=== PATIENT | female | born 1960 | race Caucasian/White ===

== ENCOUNTER 2018-09-17 07:59 | Inpatient (IN) | payer BC ==
[2018-09-17 09:13] LABS: ADD MAN DIFF? NO
[2018-09-17 09:15] LABS: ABNORMAL IP MESSAGE 1; EOSINOPHILS # 0.2 10^3/ul (0.0-0.5); EOSINOPHILS % 4.7 % (0.0-7.0); HEMATOCRIT 30.1 % (37.0-47.0); HEMOGLOBIN 8.4 g/dl (12.0-16.0); LYMPHOCYTES # 0.8 10^3/ul (0.8-2.9); MEAN CORPUSCULAR HEMOGLOBIN 26.5 pg (29.0-33.0); MEAN CORPUSCULAR HGB CONC 27.9 g/dl (32.0-37.0); MEAN PLATELET VOLUME 9.9 fl (7.4-10.4); MONOCYTE # 0.2 10^3/ul (0.3-0.9); MONOCYTES % 4.7 % (0.0-11.0); NEUTROPHIL # 2.8 10^3/ul (1.6-7.5); NEUTROPHILS % 68.9 % (39.0-77.0); PLATELET COUNT 199 10^3/UL (140-415); RED BLOOD COUNT 3.17 10^6/ul (4.20-5.40); RED CELL DISTRIBUTION WIDTH 20.3 % (11.5-14.5)
[2018-09-17 09:15] LABS: WHITE BLOOD COUNT 4.1 10^3/ul (4.8-10.8)
[2018-09-17] MEDS: ONDANSETRON 4 MG INJ IV (09:15)
[2018-09-17] MEDS: HYDROmorphONE 1 MG/ML SYG IV (09:16)
[2018-09-17] MEDS: SOD CHLORIDE 0.9% 1,000 ML IV (09:16)
[2018-09-17] MEDS: ERTAPENEM SODIUM 1 GM in SOD CHLORIDE 0.9% 100 ML IVPB (09:20)
[2018-09-17 09:30] LABS: POSITIVE DIFF @See below
[2018-09-17 09:39] LABS: ALANINE AMINOTRANSFERASE 10 IU/L (13-69); ALBUMIN 3.5 g/dl (3.3-4.9); ALBUMIN/GLOBULIN RATIO 0.59; ALKALINE PHOSPHATASE 67 IU/L (42-121); ANION GAP 10 (5-13); ASPARTATE AMINO TRANSFERASE 21 IU/L (15-46); BILIRUBIN,INDIRECT 0.2 mg/dl (0-1.1); BILIRUBIN,TOTAL 0.2 mg/dl (0.2-1.3); BLOOD UREA NITROGEN 9 mg/dl (7-20); CALCIUM 8.6 mg/dl (8.4-10.2); CARBON DIOXIDE 29 mmol/L (21-31); CHLORIDE 107 mmol/L (97-110); Estimated GFR 31 mL/min (>60); GLUCOSE 86 mg/dl (70-220); POTASSIUM 4.2 mmol/L (3.5-5.1); SODIUM 146 mmol/L (135-144); TOTAL PROTEIN 9.4 g/dl (6.1-8.1)
[2018-09-17] MEDS ORDERED: ONDANSETRON 4 MG INJ IV ×2 (11:30→12:30)
[2018-09-17] MEDS ORDERED: ACETAMINOPHEN 325 MG TAB PO ×2 (11:30→12:30)
[2018-09-17] MEDS ORDERED: NON-FORMULARY/PATIENT OWN MED (Losartan-Hydrochlorothiazide (Losartan-HCTZ) 1 TAB) PO (12:30)
[2018-09-17] MEDS ORDERED: DOCUSATE SODIUM 100 MG CAP PO (12:30)
[2018-09-17] MEDS ORDERED: DIPHENHYDRAMINE 25 MG CAP PO (12:30)
[2018-09-17] MEDS ORDERED: NACL 0.9% 3 ML SYG IV (12:30)
[2018-09-17] MEDS ORDERED: VANCOMYCIN IV PER PHARMACY XX (12:30)
[2018-09-17 13:05] LABS: IRON 89 ug/dl (35-150)
[2018-09-17 13:14] LABS: % IRON SATURATION 30 % SAT (22-52); TOTAL IRON BINDING CAPACITY 296 ug/dl (241-421)
[2018-09-17] MEDS: METOPROLOL (XL) 25 MG TAB PO (13:20)
[2018-09-17] MEDS: SOD CHLORIDE 0.9% 500 ML IV (13:21)
[2018-09-17] MEDS: SOD CHLORIDE 0.45% 1,000 ML IV (15:00)
[2018-09-17] MEDS: VANCOMYCIN HCL 2 GM in SOD CHLORIDE 0.9% 500 ML IVPB (15:00)
[2018-09-17] MEDS: FLUTICASONE/VILANTEROL 200-25 INH DEVICE INH (15:01)
[2018-09-17] MEDS: HYDROCODONE/APAP (5/325) TAB PO (16:36)
[2018-09-17] MEDS ORDERED: PENDING SANTYL ORDER FOR WOUND CARE XX (17:30)
[2018-09-17] MEDS: traZODone 50 MG TAB PO (20:39)
[2018-09-17] MEDS: RANITIDINE 150 MG TAB PO (20:39)
[2018-09-17] MEDS: MONTELUKAST 10 MG TAB PO (20:39)
[2018-09-17] MEDS: ATORVASTATIN 80 MG TAB PO (20:39)
[2018-09-17] MEDS: HEPARIN 5,000 UNIT/1 ML VIAL SC (20:43)
[2018-09-18] MEDS: SOD CHLORIDE 0.45% 1,000 ML IV ×2 (03:20→11:12)
[2018-09-18 05:07] LABS: ADD MAN DIFF? NO
[2018-09-18 05:11] LABS: ABNORMAL IP MESSAGE 1; BASOPHILS % 0.7 % (0.0-2.0); EOSINOPHILS # 0.2 10^3/ul (0.0-0.5); EOSINOPHILS % 4.1 % (0.0-7.0); HEMATOCRIT 27.3 % (37.0-47.0); HEMOGLOBIN 7.6 g/dl (12.0-16.0); LYMPHOCYTES # 0.5 10^3/ul (0.8-2.9); LYMPHOCYTES % 11.5 % (15.0-51.0); MEAN CORPUSCULAR HEMOGLOBIN 27.1 pg (29.0-33.0); MEAN CORPUSCULAR HGB CONC 27.8 g/dl (32.0-37.0); MEAN CORPUSCULAR VOLUME 97.5 fl (82.0-101.0); MEAN PLATELET VOLUME 9.9 fl (7.4-10.4); MONOCYTE # 0.2 10^3/ul (0.3-0.9); MONOCYTES % 4.8 % (0.0-11.0); NEUTROPHIL # 3.6 10^3/ul (1.6-7.5); NEUTROPHILS % 78.5 % (39.0-77.0); PLATELET COUNT 183 10^3/UL (140-415); RED CELL DISTRIBUTION WIDTH 21.3 % (11.5-14.5)
[2018-09-18 05:11] LABS: WHITE BLOOD COUNT 4.6 10^3/ul (4.8-10.8)
[2018-09-18 05:19] LABS: HEMOGLOBIN A1C 5.3 % (0-5.9)
[2018-09-18 05:44] LABS: ALBUMIN 3.2 g/dl (3.3-4.9); ALKALINE PHOSPHATASE 54 IU/L (42-121); ANION GAP 11 (5-13); ASPARTATE AMINO TRANSFERASE 17 IU/L (15-46); BILIRUBIN,INDIRECT 0.3 mg/dl (0-1.1); BILIRUBIN,TOTAL 0.3 mg/dl (0.2-1.3); BLOOD UREA NITROGEN 10 mg/dl (7-20); CALCIUM 8.3 mg/dl (8.4-10.2); CARBON DIOXIDE 26 mmol/L (21-31); CHLORIDE 106 mmol/L (97-110); CHOL/HDL RATIO 4.8 RATIO; CHOLESTEROL 92 mg/dl (100-200); Estimated GFR 31 mL/min (>60); GLUCOSE 108 mg/dl (70-220); HDL CHOLESTEROL 19 mg/dl (35-98); LDL CHOLESTEROL,CALCULATED 50 mg/dl; MAGNESIUM 1.8 mg/dl (1.7-2.5); PHOSPHORUS 5.1 mg/dl (2.5-4.9); POTASSIUM 4.8 mmol/L (3.5-5.1); SODIUM 143 mmol/L (135-144); TOTAL PROTEIN 8.5 g/dl (6.1-8.1); TRIGLYCERIDES 113 mg/dl (0-149)
[2018-09-18 05:51] LABS: POSITIVE DIFF @See below
[2018-09-18 05:54] LABS: ALANINE AMINOTRANSFERASE < 6 IU/L (13-69)
[2018-09-18] MEDS ORDERED: ENOXAPARIN 40 MG/0.4 ML SYG SC (09:00)
[2018-09-18] MEDS ORDERED: NON-FORMULARY/PATIENT OWN MED (Fluticasone Furoate (Arnuity Ellipta) 100 MCG) INHALATION (09:00)
[2018-09-18 09:14] LABS: RETICULOCYTE RBC 2.75
[2018-09-18 09:14] LABS: RETICULOCYTE COUNT # 0.143 X10^6 (0.020-0.110); RETICULOCYTE COUNT % 5.2 % (0.5-1.5)
[2018-09-18 10:54] LABS: LACTATE DEHYDROGENASE 559 IU/L (313-618)
[2018-09-18 10:54] LABS: BILIRUBIN,INDIRECT 0.2 mg/dl (0-1.1); BILIRUBIN,TOTAL 0.2 mg/dl (0.2-1.3)
[2018-09-18] MEDS: ASPIRIN 81 MG TAB PO (11:08)
[2018-09-18] MEDS: FLUTICASONE/VILANTEROL 200-25 INH DEVICE INH (11:08)
[2018-09-18 11:49] LABS: CARCINOEMBRYONIC ANTIGEN 1.2 ng/ml (0.0-5.0)
[2018-09-18] MEDS: HYDROCODONE/APAP (5/325) TAB PO ×2 (13:12→20:38)
[2018-09-18] MEDS ORDERED: VANCOMYCIN HCL 1.5 GM in SOD CHLORIDE 0.9% 250 ML IVPB (15:00)
[2018-09-18] MEDS: VANCOMYCIN HCL 1.5 GM in SOD CHLORIDE 0.9% 250 ML IVPB (16:09)
[2018-09-18] MEDS: BISACODYL (EC) 5 MG TAB PO (16:09)
[2018-09-18] MEDS: POLYETHYLENE GLYCOL 3350 119 GM POWDER PO (18:34)
[2018-09-18] MEDS: METOPROLOL (XL) 25 MG TAB PO ×2 (18:35→20:48)
[2018-09-18] MEDS: MAGNESIUM CITRATE 300 ML BTL PO (18:35)
[2018-09-18 18:39] LABS: IMMUNOGLOBULIN A 253 mg/dl (70-400)
[2018-09-18 19:15] LABS: IMMUNOGLOBULIN G 3868 mg/dl (700-1600)
[2018-09-18 19:28] LABS: FOLATE 4.9 ng/ml (2.8-20.0)
[2018-09-18] MEDS: RANITIDINE 150 MG TAB PO (20:38)
[2018-09-18] MEDS: ATORVASTATIN 80 MG TAB PO (20:39)
[2018-09-18] MEDS: MONTELUKAST 10 MG TAB PO (20:39)
[2018-09-18] MEDS: traZODone 50 MG TAB PO (20:40)
[2018-09-18] MEDS: CEFTRIAXONE 1 GM/50 ML (PMX) 50 ML IVPB (20:40)
[2018-09-19] MEDS: VANCOMYCIN HCL 1.5 GM in SOD CHLORIDE 0.9% 250 ML IVPB ×2 (00:23→22:44)
[2018-09-19] MEDS: POLYETHYLENE GLYCOL 3350 119 GM POWDER PO ×2 (05:51→18:30)
[2018-09-19] MEDS: SOD CHLORIDE 0.45% 1,000 ML IV ×3 (05:53→22:44)
[2018-09-19 06:03] LABS: ADD MAN DIFF? NO
[2018-09-19 06:18] LABS: WHITE BLOOD COUNT 4.6 10^3/ul (4.8-10.8)
[2018-09-19 06:18] LABS: ABNORMAL IP MESSAGE 1; BASOPHILS % 0.9 % (0.0-2.0); EOSINOPHILS # 0.2 10^3/ul (0.0-0.5); EOSINOPHILS % 3.5 % (0.0-7.0); HEMATOCRIT 25.3 % (37.0-47.0); LYMPHOCYTES # 0.6 10^3/ul (0.8-2.9); LYMPHOCYTES % 12.3 % (15.0-51.0); MEAN CORPUSCULAR HEMOGLOBIN 26.9 pg (29.0-33.0); MEAN CORPUSCULAR HGB CONC 27.7 g/dl (32.0-37.0); MEAN CORPUSCULAR VOLUME 97.3 fl (82.0-101.0); MEAN PLATELET VOLUME 10.8 fl (7.4-10.4); MONOCYTE # 0.3 10^3/ul (0.3-0.9); MONOCYTES % 5.6 % (0.0-11.0); NEUTROPHIL # 3.6 10^3/ul (1.6-7.5); NEUTROPHILS % 77.1 % (39.0-77.0); PLATELET COUNT 151 10^3/UL (140-415); RED CELL DISTRIBUTION WIDTH 21.9 % (11.5-14.5)
[2018-09-19 06:32] LABS: POSITIVE DIFF @See below
[2018-09-19 06:36] LABS: ANION GAP 6 (5-13); BLOOD UREA NITROGEN 14 mg/dl (7-20); CALCIUM 8.8 mg/dl (8.4-10.2); CARBON DIOXIDE 28 mmol/L (21-31); CHLORIDE 109 mmol/L (97-110); CREATININE 1.72 mg/dl (0.44-1.00); Estimated GFR 30 mL/min (>60); GLUCOSE 119 mg/dl (70-220); SODIUM 143 mmol/L (135-144)
[2018-09-19 06:40] LABS: PHOSPHORUS 4.2 mg/dl (2.5-4.9)
[2018-09-19 06:40] LABS: MAGNESIUM 2.1 mg/dl (1.7-2.5)
[2018-09-19] MEDS ORDERED: LIDOCAINE 2% (SDV) 5 ML INJ (07:00)
[2018-09-19] MEDS ORDERED: PROPOFOL 200 MG INJ (07:00)
[2018-09-19] MEDS: ALBUTEROL/IPRATROPIUM (NEB) 3 ML AMP HHN (08:15)
[2018-09-19] MEDS: BISACODYL (EC) 5 MG TAB PO ×2 (08:39→20:20)
[2018-09-19] MEDS: METOPROLOL (XL) 25 MG TAB PO (08:40)
[2018-09-19] MEDS: ASPIRIN 81 MG TAB PO (08:40)
[2018-09-19] MEDS: LACTULOSE 30ML CUP PO ×3 (08:46→11:00)
[2018-09-19] MEDS: FLUTICASONE/VILANTEROL 200-25 INH DEVICE INH (08:47)
[2018-09-19 10:02] LABS: HAPTOGLOBIN 195 mg/dL (43-212)
[2018-09-19 11:04] LABS: OCCULT BLOOD STOOL POSITIVE (NEGATIVE)
[2018-09-19 17:01] LABS: HEMATOCRIT 23.6 % (35.0-45.0); HEMOGLOBIN 7.1 g/dL (11.7-15.5); MCH 27.4 pg (27.0-33.0); MCV 91.1 fL (80.0-100.0); RDW 19.2 % (11.0-15.0); RED BLOOD CELL COUNT 2.59 Million/uL (3.80-5.10)
[2018-09-19] MEDS: MAGNESIUM CITRATE 300 ML BTL PO (17:30)
[2018-09-19] MEDS: PANTOPRAZOLE 40 MG INJ IV (18:22)
[2018-09-19] MEDS: MONTELUKAST 10 MG TAB PO (20:19)
[2018-09-19] MEDS: ATORVASTATIN 80 MG TAB PO (20:19)
[2018-09-19] MEDS: traZODone 50 MG TAB PO (20:19)
[2018-09-19] MEDS: METOPROLOL (XL) 50 MG TAB PO (20:21)
[2018-09-19] MEDS: CEFTRIAXONE 1 GM/50 ML (PMX) 50 ML IVPB (20:22)
[2018-09-19] MEDS: HYDROCODONE/APAP (5/325) TAB PO (22:44)
[2018-09-20 03:17] LABS: PROTEIN, TOTAL 7.9 g/dL (6.1-8.1)
[2018-09-20 05:45] LABS: ADD MAN DIFF? NO
[2018-09-20 05:55] LABS: ABNORMAL IP MESSAGE 1; BASOPHIL # 0.1 10^3/ul (0.0-0.1); BASOPHILS % 1.3 % (0.0-2.0); EOSINOPHILS # 0.2 10^3/ul (0.0-0.5); EOSINOPHILS % 3.9 % (0.0-7.0); HEMATOCRIT 27.8 % (37.0-47.0); HEMOGLOBIN 7.7 g/dl (12.0-16.0); LYMPHOCYTES # 0.5 10^3/ul (0.8-2.9); LYMPHOCYTES % 13.7 % (15.0-51.0); MEAN CORPUSCULAR HEMOGLOBIN 27.6 pg (29.0-33.0); MEAN CORPUSCULAR HGB CONC 27.7 g/dl (32.0-37.0); MEAN CORPUSCULAR VOLUME 99.6 fl (82.0-101.0); MONOCYTE # 0.2 10^3/ul (0.3-0.9); MONOCYTES % 6.2 % (0.0-11.0); NEUTROPHIL # 2.9 10^3/ul (1.6-7.5); NEUTROPHILS % 74.1 % (39.0-77.0); PLATELET COUNT 89 10^3/UL (140-415); RED BLOOD COUNT 2.79 10^6/ul (4.20-5.40)
[2018-09-20 05:55] LABS: WHITE BLOOD COUNT 3.9 10^3/ul (4.8-10.8)
[2018-09-20] MEDS: POLYETHYLENE GLYCOL 3350 119 GM POWDER PO (05:55)
[2018-09-20] MEDS: PANTOPRAZOLE 40 MG INJ IV ×2 (05:55→17:09)
[2018-09-20 06:02] LABS: POSITIVE DIFF @See below
[2018-09-20 06:21] LABS: ANION GAP 5 (5-13); BLOOD UREA NITROGEN 13 mg/dl (7-20); CALCIUM 8.9 mg/dl (8.4-10.2); CARBON DIOXIDE 27 mmol/L (21-31); CHLORIDE 112 mmol/L (97-110); CREATININE 1.61 mg/dl (0.44-1.00); Estimated GFR 33 mL/min (>60); GLUCOSE 108 mg/dl (70-220); PHOSPHORUS 4.3 mg/dl (2.5-4.9); POTASSIUM 4.7 mmol/L (3.5-5.1); SODIUM 144 mmol/L (135-144)
[2018-09-20] MEDS: BISACODYL (EC) 5 MG TAB PO (08:00)
[2018-09-20] MEDS: FLUTICASONE/VILANTEROL 200-25 INH DEVICE INH (09:20)
[2018-09-20] MEDS: ASPIRIN 81 MG TAB PO (09:21)
[2018-09-20] MEDS: METOPROLOL (XL) 50 MG TAB PO ×2 (09:21→20:13)
[2018-09-20 12:31] LABS: HEMOGLOBIN A 97.6 % (>96.0); HEMOGLOBIN A2 (QUANT) 2.4 % (1.8-3.5); HEMOGLOBIN F <1.0 % (<2.0)
[2018-09-20] MEDS: HYDROCODONE/APAP (5/325) TAB PO ×2 (13:57→20:09)
[2018-09-20] MEDS: SOD CHLORIDE 0.9% 250 ML IV* (16:30)
[2018-09-20] MEDS: SUCRALFATE (100 MG/ML) 10ML CUP PO ×2 (17:09→20:14)
[2018-09-20] MEDS: SOD CHLORIDE 0.45% 1,000 ML IV (17:15)
[2018-09-20] MEDS: CEFTRIAXONE 1 GM/50 ML (PMX) 50 ML IVPB (20:09)
[2018-09-20] MEDS: ATORVASTATIN 80 MG TAB PO (20:11)
[2018-09-20] MEDS: MONTELUKAST 10 MG TAB PO (20:11)
[2018-09-20] MEDS: traZODone 50 MG TAB PO (20:11)
[2018-09-20 20:17] LABS: ALBUMIN 2.4 g/dL (3.8-4.8); ALPHA-1-GLOBULINS 0.5 g/dL (0.2-0.3); ALPHA-2-GLOBULINS 0.8 g/dL (0.5-0.9); BETA 2 GLOBULINS 0.3 g/dL (0.2-0.5); BETA GLOBULINS 0.5 g/dL (0.4-0.6); GAMMA GLOBULINS 3.5 g/dL (0.8-1.7)
[2018-09-20] MEDS: ALBUTEROL/IPRATROPIUM (NEB) 3 ML AMP HHN (22:06)
[2018-09-20 23:04] LABS: VANCOMYCIN,TROUGH 27.2 ug/ml (10.0-20.0)
[2018-09-20 23:24] LABS: IMMEDIATE SPIN CROSSMATCH 1 1
[2018-09-21] MEDS: PANTOPRAZOLE 40 MG INJ IV (06:24)
[2018-09-21] MEDS: ALBUTEROL/IPRATROPIUM (NEB) 3 ML AMP HHN (08:16)
[2018-09-21] MEDS: HYDROCODONE/APAP (5/325) TAB PO (08:30)
[2018-09-21] MEDS: FLUTICASONE/VILANTEROL 200-25 INH DEVICE INH (08:32)
[2018-09-21] MEDS: METOPROLOL (XL) 50 MG TAB PO (08:34)
[2018-09-21] MEDS: ASPIRIN 81 MG TAB PO (08:34)
[2018-09-21] MEDS: SUCRALFATE (100 MG/ML) 10ML CUP PO (08:34)
[2018-09-21 09:00] LABS: ADD MAN DIFF? NO
[2018-09-21] MEDS ORDERED: DIPHTH/TET/ACEL PERTUSS (ADULT) 0.5 ML VIAL IM* (09:00)
[2018-09-21 09:01] LABS: WHITE BLOOD COUNT 4.8 10^3/ul (4.8-10.8)
[2018-09-21 09:01] LABS: ABNORMAL IP MESSAGE 1; BASOPHIL # 0.1 10^3/ul (0.0-0.1); BASOPHILS % 1.1 % (0.0-2.0); EOSINOPHILS # 0.2 10^3/ul (0.0-0.5); EOSINOPHILS % 3.2 % (0.0-7.0); HEMATOCRIT 27.6 % (37.0-47.0); HEMOGLOBIN 7.9 g/dl (12.0-16.0); LYMPHOCYTES # 0.6 10^3/ul (0.8-2.9); MEAN CORPUSCULAR HEMOGLOBIN 28.3 pg (29.0-33.0); MEAN CORPUSCULAR HGB CONC 28.6 g/dl (32.0-37.0); MEAN CORPUSCULAR VOLUME 98.9 fl (82.0-101.0); MEAN PLATELET VOLUME 10.9 fl (7.4-10.4); MONOCYTE # 0.3 10^3/ul (0.3-0.9); MONOCYTES % 6.9 % (0.0-11.0); NEUTROPHIL # 3.6 10^3/ul (1.6-7.5); NEUTROPHILS % 76.4 % (39.0-77.0); NUCLEATED RED BLOOD CELLS% 0.4 /100WBC (0.0-0.0); PLATELET COUNT 143 10^3/UL (140-415); RED BLOOD COUNT 2.79 10^6/ul (4.20-5.40); RED CELL DISTRIBUTION WIDTH 21.3 % (11.5-14.5)
[2018-09-21 09:06] LABS: POSITIVE DIFF @See below
[2018-09-21 09:21] LABS: ANION GAP 3 (5-13); BLOOD UREA NITROGEN 15 mg/dl (7-20); CALCIUM 8.8 mg/dl (8.4-10.2); CARBON DIOXIDE 27 mmol/L (21-31); CHLORIDE 112 mmol/L (97-110); CREATININE 2.18 mg/dl (0.44-1.00); Estimated GFR 23 mL/min (>60); GLUCOSE 119 mg/dl (70-220); PHOSPHORUS 4.3 mg/dl (2.5-4.9); POTASSIUM 4.8 mmol/L (3.5-5.1); SODIUM 142 mmol/L (135-144)
[2018-09-21] MEDS: SOD CHLORIDE 0.45% 1,000 ML IV (11:20)
[2018-09-21 20:23] LABS: ERYTHROPOIETIN 642.7 mIU/mL (2.6-18.5)
[2018-09-21] MEDS ORDERED: VANCOMYCIN HCL 1.5 GM in SOD CHLORIDE 0.9% 250 ML IVPB (22:30)
== END 2018-09-21 12:15 | disposition home health service (06) | DRG 603 ==
LOC: E/R 07:59 → PP2 11:03
PROC: 0DB68ZX Excision of Stomach, Via Natural or Artificial Opening Endoscopic, Diagnostic (ICD-10-PCS; principal; 2018-09-19 16:00)
PROC: 30233N1 Transfusion of Nonautologous Red Blood Cells into Peripheral Vein, Percutaneous Approach (ICD-10-PCS; 2018-09-19 16:00)
DX: L03.116 Cellulitis of left lower limb (principal); N17.9 Acute kidney failure, unspecified; Z68.41 Body mass index [BMI] 40.0-44.9, adult; K62.5 Hemorrhage of anus and rectum; E66.2 Morbid (severe) obesity with alveolar hypoventilation; D50.0 Iron deficiency anemia secondary to blood loss (chronic); I12.9 Hypertensive chronic kidney disease with stage 1 through stage 4 chronic kidney disease, or unspecified chronic kidney disease; N18.9 Chronic kidney disease, unspecified; E78.5 Hyperlipidemia, unspecified; J45.909 Unspecified asthma, uncomplicated; E66.01 Morbid (severe) obesity due to excess calories; K25.9 Gastric ulcer, unspecified as acute or chronic, without hemorrhage or perforation; K44.9 Diaphragmatic hernia without obstruction or gangrene; K76.0 Fatty (change of) liver, not elsewhere classified; K29.60 Other gastritis without bleeding; E83.9 Disorder of mineral metabolism, unspecified; Z86.73 Personal history of transient ischemic attack (TIA), and cerebral infarction without residual deficits
CPT/HCPCS: 36415; 36430; 76536; 76705; 76775; 80048; 80053; 80061; 80202; 82247; 82248; 82270; 82378; 82607; 82668; 82728; 82746; 82784; 83010; 83020; 83036; 83540; 83615; 83735; 84100; 84155; 84165; 84443; 85025; 85045; 86850; 86900; 86901; 86920; 87040; 87070; 87081; 88305; 88312; 93922; 93971; 94640; 94664; 96374; 96375; 97161; 99285-25